=== PATIENT | female | born 1960 | race Caucasian/White ===

== ENCOUNTER 2017-01-15 14:25 | Observation (INO) | payer OTHER ==
[2017-01-15] MEDS ORDERED: METOCLOPRAMIDE HCL INJECTION 10 MG/2 ML VIAL IVPB ONE (16:39)
[2017-01-15] MEDS ORDERED: ACETAMINOPHEN 325 MG TABLET (FP) PO ONE (16:39)
[2017-01-15] MEDS ORDERED: SODIUM CHLORIDE 1,000 ML IV STA (16:39)
--- NOTE | 2017-01-15 16:45 | PDOC ---
History of Present Illness - General History Source: Patient, Old Records Exam Limitations: No Limitations - History of Present Illness Initial Comments: 01/15/17 16:47 The patient is a 56 year old female, with a significant past medical history of diabetes, who presents to the emergency department with a headache, neck stiffness and dizziness for the past 6 days. She describes her headache as onset when she woke up 6 days ago. She notes that her headache is localized on the right side of her head, ranging from mild to moderate, without radiation. She notes that touching the area exacerbates the pain. She also notes that she has been taking motrin for the pain with minimal relief of her pain. She states that she does have a family history of headaches. The patient denies chest pain and shortness of breath. Denies fever, chills, nausea, vomit, diarrhea and constipation. Denies dysuria, frequency, urgency and hematuria. Allergies: None Past surgical history: None reported Social history: No alcohol, tobacco or drug use reported PMD - Dr. Gautam Theodore <Tyson Mari - Last Filed: 01/15/17 16:46> - General History Source: Patient Exam Limitations: No Limitations <Mp Iverson - Last Filed: 01/15/17 19:12> - General Chief Complaint: Headache Stated Complaint: DIZZINESS, HEADACHE Time Seen by Provider: 01/15/17 16:26 Past History <Tyson Mari - Last Filed: 01/15/17 16:46> - Past Medical History Diabetes: Yes - Surgical History Appendectomy: Yes Cholecystectomy: Yes - Psycho/Social/Smoking Cessation Hx Anxiety: No Suicidal Ideation: No Smoking History: Never smoked Have you smoked in the past 12 months: No Number of Cigarettes Smoked Daily: 0 Information on smoking cessation initiated: No Hx Alcohol Use: No Drug/Substance Use Hx: No Substance Use Type: None <Mp Iverson - Last Filed: 01/15/17 19:12> - Past Medical History Allergies/Adverse Reactions: Allergies Allergy/AdvReac Type Severity Reaction Status Date / Time No Known Allergies Allergy Unverified 01/15/17 14:50 Home Medications: Ambulatory Orders Metformin HCl 500 mg PO BID 11/25/15 Empagliflozin [Jardiance] 10 mg PO DAILY 01/15/17 Review of Systems - Review of Systems Able to Perform ROS?: Yes Comments:: 01/15/17 16:47 GENERAL/CONSTITUTIONAL: No fever or chills. No weakness. HEAD, EYES, EARS, NOSE AND THROAT: No change in vision. No ear pain or discharge. No sore throat. NECK: (+) Neck stiffness CARDIOVASCULAR: No chest pain or shortness of breath RESPIRATORY: No cough, wheezing, or hemoptysis. GASTROINTESTINAL: No nausea, vomiting, diarrhea or constipation. GENITOURINARY: No dysuria, frequency, or change in urination. MUSCULOSKELETAL: No joint or muscle swelling or pain. No neck or back pain. SKIN: No rash NEUROLOGIC: (+) Headache, dizziness. No loss of consciousness, or change in strength/sensation. ENDOCRINE: No increased thirst. No abnormal weight change HEMATOLOGIC/LYMPHATIC: No anemia, easy bleeding, or history of blood clots. ALLERGIC/IMMUNOLOGIC: No hives or skin allergy. <Tyson Mari - Last Filed: 01/15/17 16:46> *Physical Exam - Vital Signs Last Vital Signs Temp Pulse Resp BP Pulse Ox 98.2 F 77 18 147/80 100 01/15/17 14:50 01/15/17 14:50 01/15/17 14:50 01/15/17 14:50 01/15/17 14:50 - Physical Exam Comments: 01/15/17 16:47 GENERAL: Awake, alert, and fully oriented, in no acute distress HEAD: No signs of trauma, normocephalic, atraumatic EYES: PERRLA, EOMI, sclera anicteric, conjunctiva clear ENT: Auricles normal inspection, hearing grossly normal, nares patent, oropharynx clear without exudates. Moist mucosa NECK: Normal ROM, supple, no lymphadenopathy, JVD, or masses LUNGS: No distress, speaks full sentences, clear to auscultation bilaterally HEART: Regular rate and rhythm, normal S1 and S2, no murmurs, rubs or gallops, peripheral pulses normal and equal bilaterally. ABDOMEN: Soft, nontender, normoactive bowel sounds. No guarding, no rebound. No masses EXTREMITIES: Normal inspection, Normal range of motion, no edema. No clubbing or cyanosis. NEUROLOGICAL: Cranial nerves II through XII intact. Normal speech, normal gait , no focal sensorimotor deficits. 5/5 strength in upper and lower extremities bilaterally. Sensation intact throughout. Skin sensitivity along the V1 nerve. No pronator drift. Finger to nose intact. SKIN: Warm, Dry, normal turgor, no rashes or lesions noted. <JaceyTysonedinson Daoe - Last Filed: 01/15/17 16:46> - Vital Signs Last Vital Signs Temp Pulse Resp BP Pulse Ox 98.2 F 77 18 147/80 100 01/15/17 14:50 01/15/17 14:50 01/15/17 14:50 01/15/17 14:50 01/15/17 14:50 <Mp Iverson - Last Filed: 01/15/17 19:12> ED Treatment Course - LABORATORY CBC & Chemistry Diagram: 01/15/17 17:00 01/15/17 17:00 - RADIOLOGY Radiology Studies Ordered: Category Date Time Status HEAD CT WITHOUT CONTRAST [CT] Stat CT Scan 01/15/17 16:39 Ordered <Mp Iverson - Last Filed: 01/15/17 19:12> Medical Decision Making - Medical Decision Making 01/15/17 16:43 A portion of this note was documented by scribe services under my direction. I have reviewed the details of the note, within reason, and agree with the documentation with the following case summary and management plan written by me. Patient treated in the ED. Nursing notes are reviewed and incorporated into the medical decision-making. Vital signs reviewed. Peripheral IV access obtained by the nurse, laboratory studies are drawn and sent, reviewed and interpreted by myself. Vital Signs Temp Pulse Resp BP Pulse Ox 98.2 F 77 18 147/80 100 01/15/17 14:50 01/15/17 14:50 01/15/17 14:50 01/15/17 14:50 01/15/17 14:50 56-year-old female with past medical history diabetes presents with headache. Patient reports one week ago, she woke up with his right-sided headache that was constant. Denies any exacerbating or improving factors. Denies photophobia or phonophobia. Denies fevers. Stated that she had some upper neck pain but has negative Kernig's and Brudzinski's. Denies prior history of migraines or headache history but does have a family history of headaches. The patient is particularly sensitive on palpation over the V1 distribution of the right head. Differential includes migraines, tension headache, trigeminal neuralgia. I have low suspicion for meningitis at this time. We'll obtain head CT and labs. We'll trial migraine medications and reassess in this patient with patient's doctor. 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 No acute findings. CBC, BMP 01/15/17 17:00 01/15/17 17:00 CMP Sodium 142 mmol/L (136-145) 01/15/17 17:00 Potassium 4.5 mmol/L (3.5-5.1) 01/15/17 17:00 Chloride 107 mmol/L (98-107) 01/15/17 17:00 Carbon Dioxide 27 mmol/L (21-32) 01/15/17 17:00 Anion Gap 8 (8-16) 01/15/17 17:00 BUN 18 mg/dL (7-18) 01/15/17 17:00 Creatinine 0.8 mg/dL (0.55-1.02) 01/15/17 17:00 Creat Clearance w eGFR > 60 (>60) 01/15/17 17:00 Random Glucose 106 mg/dL (74-106) 01/15/17 17:00 Calcium 8.8 mg/dL (8.5-10.1) 01/15/17 17:00 Total Bilirubin 0.3 mg/dL (0.2-1.0) 01/15/17 17:00 AST 14 U/L (15-37) L 01/15/17 17:00 ALT 24 U/L (12-78) 01/15/17 17:00 Alkaline Phosphatase 90 U/L (45-117) 01/15/17 17:00 C-Reactive Protein 1.0 MG/DL (0.00-0.3) H 01/15/17 17:00 Total Protein 7.0 g/dl (6.4-8.2) 01/15/17 17:00 Albumin 3.9 g/dl (3.4-5.0) 01/15/17 17:00 Labs reviewed. Pt continues to have persistent headache. Case discussed with DR. Theodore for persistent headache. Patient accepted to med/surg obs. Requests Dr. Pete for neuro consultation. <Mp Iverson - Last Filed: 01/15/17 19:12> *DC/Admit/Observation/Transfer - Attestations Scribe Attestion: 01/15/17 16:47 Documentation prepared by Tyson Mari, acting as medical voucher clerk for Mp Iverson MD <Tyson Mari - Last Filed: 01/15/17 16:46> - Discharge Dispostion Admit: Yes <Mp Iverson - Last Filed: 01/15/17 19:12> Diagnosis at time of Disposition: Headache Qualifiers: Headache type: unspecified Headache chronicity pattern: acute headache Intractability: intractable Qualified Code(s): R51 - Headache - Discharge Dispostion Condition at time of disposition: Stable - Referrals Referrals: Gautam Theodore MD [Primary Care Provider] -
[2017-01-15] MEDS ORDERED: ACETAMINOPHEN 325 MG TABLET (FP) ONE (16:53)
[2017-01-15] MEDS ORDERED: METOCLOPRAMIDE HCL INJECTION 10 MG/2 ML VIAL ONE (16:54)
[2017-01-15 17:11] LABS: BASOPHIL 0.8 % (0-2.0); EOSINOPHIL 2.7 % (0-4.5); MCH 28.5 pg (25.7-33.7); MEAN CELL VOLUME 86.5 fl (80-96); MEAN PLT VOLUME 8.7 fl (7.5-11.1); NEUTROPHILS 55.2 % (42.8-82.8); PLATELET COUNT 216 K/MM3 (134-434); RDW 14.2 % (11.6-15.6); WHITE BLOOD COUNT 6.3 K/mm3 (4.0-10.0)
[2017-01-15 17:45] LABS: ALBUMIN 3.9 g/dl (3.4-5.0); ANION GAP 8 (8-16); BILIRUBIN,TOTAL 0.3 mg/dL (0.2-1.0); CALCIUM 8.8 mg/dL (8.5-10.1); CO2 27 mmol/L (21-32); COCKROFT - GAULT 115.5575; CREATININE 0.8 mg/dL (0.55-1.02); GLUCOSE,RANDOM 106 mg/dL (74-106); SGOT/AST 14 U/L (15-37); SGPT/ALT 24 U/L (12-78)
[2017-01-15 17:46] LABS: ALK PHOS 90 U/L (45-117)
[2017-01-15 18:40] LABS: ERYTHROCYTE SEDIMENTATION RATE 35 mm/hr (0-30)
[2017-01-15] MEDS ORDERED: KETOROLAC TROMETHAMINE 30 MG/1 ML VIAL IVPUSH ONE (19:13)
[2017-01-15] MEDS ORDERED: MAGNESIUM SULF 50% (8.12 MEQ/2 ML-1 GM VIAL) IVPB ONE (19:13)
--- NOTE | 2017-01-15 19:22 | HP ---
Admitting History and Physical - Primary Care Physician PCP: Gautam Theodore - Admission Chief Complaint: HEADACHE WITH NUMBNESS AND TINGLING RULE OUT CVA History of Present Illness: 56 T/Y FEMALE WITH PAST MEDICAL HISTORY OF HTN/DMII BORDERLINE/LIPIDEMIA/ OBESITY PRESENTS WITH THE WORST HEADACHE OF HER LIFE FOR PAST 24 HRS BUT SLOWLY STARTED 1 WEEK AGO AND HAS BEEN GETTING WORSE DAILY WITHOUT AND RELIEF WITH OTC MEDICATIONS. PATIENT REPORTS NUMBNESS AND TINGLING AND WEAKNESS OF HER FACE. History Source: Patient Limitations to Obtaining History: No Limitations - Past Medical History Cardiovascular: Yes: HTN - Smoking History Smoking history: Never smoked Have you smoked in the past 12 months: No Aproximately how many cigarettes per day: 0 - Alcohol/Substance Use Hx Alcohol Use: No Home Medications - Allergies Allergies/Adverse Reactions: Allergies Allergy/AdvReac Type Severity Reaction Status Date / Time No Known Allergies Allergy Unverified 01/15/17 14:50 - Home Medications Home Medications: Ambulatory Orders Metformin HCl 500 mg PO BID 11/25/15 Empagliflozin [Jardiance] 10 mg PO DAILY 01/15/17 Review of Systems - Review of Systems Constitutional: reports: Weakness Eyes: reports: No Symptoms HENT: reports: Other Neck: reports: No Symptoms Cardiovascular: reports: No Symptoms Respiratory: reports: No Symptoms Gastrointestinal: reports: No Symptoms Genitourinary: reports: No Symptoms Musculoskeletal: reports: No Symptoms Integumentary: reports: No Symptoms Neurological: reports: Dizziness, Headache, Numbness, Weakness Endocrine: reports: No Symptoms Hematology/Lymphatic: reports: No Symptoms Psychiatric: reports: No Symptoms Physical Examination Vital Signs: Vital Signs Temperature 98.2 F 01/15/17 14:50 Pulse Rate 77 01/15/17 14:50 Respiratory Rate 18 01/15/17 14:50 Blood Pressure 147/80 01/15/17 14:50 O2 Sat by Pulse Oximetry (%) 100 01/15/17 14:50 Constitutional: Yes: Moderate Distress Eyes: Yes: WNL HENT: Yes: WNL Neck: Yes: WNL Cardiovascular: Yes: WNL Respiratory: Yes: WNL Gastrointestinal: Yes: WNL Musculoskeletal: Yes: WNL Extremities: Yes: WNL Edema: No Peripheral Pulses WNL: Yes Integumentary: Yes: WNL Wound/Incision: Yes: Clean/Dry Neurological: Yes: WNL ...Motor Strength: WNL Psychiatric: Yes: WNL Labs: CBC, BMP 01/15/17 17:00 01/15/17 17:00 Imaging - Results Cat Scan: Pending MRI: Pending Problem List - Problems (1) Headache Code(s): R51 - HEADACHE Qualifiers: Headache type: unspecified Headache chronicity pattern: acute headache Intractability: intractable Qualified Code(s): R51 - Headache (2) Stroke risk Code(s): Z91.89 - OTH PERSONAL RISK FACTORS, NOT ELSEWHERE CLASSIFIED (3) Hypertension Code(s): I10 - ESSENTIAL (PRIMARY) HYPERTENSION Qualifiers: Hypertension type: essential hypertension Qualified Code(s): I10 - Essential (primary) hypertension (4) Lipidemia Code(s): E78.5 - HYPERLIPIDEMIA, UNSPECIFIED Qualifiers: Hyperlipidemia type: mixed hyperlipidemia Qualified Code(s): E78.2 - Mixed hyperlipidemia (5) Obesity (BMI 30-39.9) Code(s): E66.9 - OBESITY, UNSPECIFIED Assessment/Plan PATIENT WITH STRONG FMHX OF STROKE/CAD WILL NEED OBSERVATION STATUS CTA AND MRI OF BRAIN BECAUSE OF FAMILY HISTORY OF CVA AND AVM OF BRAIN LIPID PANEL HTN CONTROL KEEP SBP ABOVE 130 NEUROLOGY AND CARDIOLOGY EVAL
[2017-01-15] MEDS ORDERED: ACETAMINOPHEN 325 MG TABLET (FP) PO PRN (19:23)
[2017-01-15] MEDS: KETOROLAC TROMETHAMINE 30 MG/1 ML VIAL IVPUSH SCH (19:49)
[2017-01-15] MEDS: ATORVASTATIN CA 10 MG TABLET (FP) PO SCH (22:40)
[2017-01-15 23:24] VITALS: BMI 40.1
[2017-01-16] MEDS: KETOROLAC TROMETHAMINE 30 MG/1 ML VIAL IVPUSH SCH ×3 (01:49→18:43)
[2017-01-16 07:07] LABS: MCH 29.2 pg (25.7-33.7); MCHC 33.5 g/dl (32.0-36.0); MEAN CELL VOLUME 87.2 fl (80-96); MEAN PLT VOLUME 8.6 fl (7.5-11.1); PLATELET COUNT 181 K/MM3 (134-434); RDW 13.8 % (11.6-15.6); WHITE BLOOD COUNT 6.6 K/mm3 (4.0-10.0)
[2017-01-16 08:21] LABS: ALBUMIN 3.2 g/dl (3.4-5.0); ALK PHOS 79 U/L (45-117); ANION GAP 8 (8-16); BILIRUBIN,TOTAL 0.2 mg/dL (0.2-1.0); CALCIUM 8.1 mg/dL (8.5-10.1); CHOLESTEROL 196 mg/dL (50-200); CO2 24 mmol/L (21-32); CREATININE 0.8 mg/dL (0.55-1.02); GLUCOSE,RANDOM 133 mg/dL (74-106); LDL CHOLESTEROL (ONLY SJRH) 123 mg/dL (5-100); SGOT/AST 20 U/L (15-37); SGPT/ALT 23 U/L (12-78); TOT PROT 5.9 g/dl (6.4-8.2)
[2017-01-16] MEDS ORDERED: ACETAMINOPHEN/CAFFEINE/BUTALBITAL 1 TAB PO PRN (12:12)
--- NOTE | 2017-01-16 12:12 | CONSULT ---
Consult - text type - Consultation Consultation Note: Neurology The patient is a 56 year old female, with a significant past medical history of diabetes, who presented to the emergency department with a headache, neck discomfort for the past 6 days. She notes that her headache is localized on the right side of her head and starting from her neck, ranging from mild to moderate , without radiation. She notes that touching the area exacerbates the pain. She also notes that she has been taking motrin for the pain with minimal relief of her pain. She states that she does have a family history of headaches. There is no neck stiffness or nuchal rigidity. CT head completed and without acute changes. She is feeling better today with pain medication. MRI brain and CTA head and neck ordered by PCP. Past History - Past Medical History Diabetes: Yes - Surgical History Appendectomy: Yes Cholecystectomy: Yes - Psycho/Social/Smoking Cessation Hx Anxiety: No Suicidal Ideation: No Smoking History: Never smoked Have you smoked in the past 12 months: No Number of Cigarettes Smoked Daily: 0 Information on smoking cessation initiated: No Hx Alcohol Use: No Drug/Substance Use Hx: No Substance Use Type: None - Past Medical History Allergies/Adverse Reactions: Allergies Allergy/AdvReac Type Severity Reaction Status Date / Time No Known Allergies Allergy Unverified 01/15/17 14:50 Home Medications: Ambulatory Orders Metformin HCl 500 mg PO BID 11/25/15 Empagliflozin [Jardiance] 10 mg PO DAILY 01/15/17 Review of Systems GENERAL/CONSTITUTIONAL: No fever or chills. No weakness. HEAD, EYES, EARS, NOSE AND THROAT: No change in vision. No ear pain or discharge. No sore throat. NECK: (+) Neck stiffness CARDIOVASCULAR: No chest pain or shortness of breath RESPIRATORY: No cough, wheezing, or hemoptysis. GASTROINTESTINAL: No nausea, vomiting, diarrhea or constipation. GENITOURINARY: No dysuria, frequency, or change in urination. MUSCULOSKELETAL: No joint or muscle swelling or pain. No neck or back pain. SKIN: No rash NEUROLOGIC: (+) Headache, dizziness. No loss of consciousness, or change in strength/sensation. ENDOCRINE: No increased thirst. No abnormal weight change HEMATOLOGIC/LYMPHATIC: No anemia, easy bleeding, or history of blood clots. ALLERGIC/IMMUNOLOGIC: No hives or skin allergy. *Physical Exam Vital Signs Temperature 97.6 F 01/16/17 06:00 Pulse Rate 69 01/16/17 06:00 Respiratory Rate 18 01/16/17 06:00 Blood Pressure 128/69 01/16/17 06:00 O2 Sat by Pulse Oximetry (%) 99 01/15/17 20:30 GENERAL: Awake, alert, and fully oriented, in no acute distress HEAD: No signs of trauma, normocephalic, atraumatic EYES: PERRLA, EOMI, sclera anicteric, conjunctiva clear ENT: Auricles normal inspection, hearing grossly normal, nares patent, oropharynx clear without exudates. Moist mucosa NECK: Normal ROM, supple, no lymphadenopathy, JVD, or masses LUNGS: No distress, speaks full sentences, clear to auscultation bilaterally HEART: Regular rate and rhythm, normal S1 and S2, no murmurs, rubs or gallops, peripheral pulses normal and equal bilaterally. ABDOMEN: Soft, nontender, normoactive bowel sounds. No guarding, no rebound. No masses EXTREMITIES: Normal inspection, Normal range of motion, no edema. No clubbing or cyanosis. NEUROLOGICAL: Cranial nerves II through XII intact. Normal speech, normal gait , no focal sensorimotor deficits. 5/5 strength in upper and lower extremities bilaterally. Sensation intact throughout. Skin sensitivity along the V1 nerve. No pronator drift. Finger to nose intact. SKIN: Warm, Dry, normal turgor, no rashes or lesions noted. CBCD WBC 6.6 K/mm3 (4.0-10.0) 01/16/17 06:30 RBC 3.88 M/mm3 (3.60-5.2) 01/16/17 06:30 Hgb 11.3 GM/dL (10.7-15.3) 01/16/17 06:30 Hct 33.8 % (32.4-45.2) 01/16/17 06:30 MCV 87.2 fl (80-96) 01/16/17 06:30 MCHC 33.5 g/dl (32.0-36.0) 01/16/17 06:30 RDW 13.8 % (11.6-15.6) 01/16/17 06:30 Plt Count 181 K/MM3 (134-434) 01/16/17 06:30 MPV 8.6 fl (7.5-11.1) 01/16/17 06:30 CMP Sodium 142 mmol/L (136-145) 01/16/17 06:30 Potassium 4.4 mmol/L (3.5-5.1) 01/16/17 06:30 Chloride 110 mmol/L (98-107) H 01/16/17 06:30 Carbon Dioxide 24 mmol/L (21-32) 01/16/17 06:30 Anion Gap 8 (8-16) 01/16/17 06:30 BUN 20 mg/dL (7-18) H 01/16/17 06:30 Creatinine 0.8 mg/dL (0.55-1.02) 01/16/17 06:30 Creat Clearance w eGFR > 60 (>60) 01/16/17 06:30 Calcium 8.1 mg/dL (8.5-10.1) L 01/16/17 06:30 Total Bilirubin 0.2 mg/dL (0.2-1.0) D 01/16/17 06:30 AST 20 U/L (15-37) D 01/16/17 06:30 ALT 23 U/L (12-78) 01/16/17 06:30 Alkaline Phosphatase 79 U/L (45-117) 01/16/17 06:30 Total Protein 5.9 g/dl (6.4-8.2) L 01/16/17 06:30 Albumin 3.2 g/dl (3.4-5.0) L 01/16/17 06:30 Medical Decision Making 56 year old female, with a significant past medical history of diabetes, who presented to the emergency department with a headache, neck discomfort for the past 6 days. She notes that her headache is localized on the right side of her head and starting from her neck, ranging from mild to moderate, without radiation. She notes that touching the area exacerbates the pain. She also notes that she has been taking motrin for the pain with minimal relief of her pain. She states that she does have a family history of headaches. There is no neck stiffness or nuchal rigidity. CT head completed and without acute changes. She is feeling better today with pain medication. MRI brain and CTA head and neck ordered by PCP. Most likely, complicated migraine Will order Fioricet for headache as needed Cervicalgia can be treated with cyclobenzaprine but will hold off on adding this as symptoms improved Cognitive rest recommended
--- NOTE | 2017-01-16 15:38 | CON.CARD ---
Consult Consult Specialty:: cardiology Reason for Consultation:: CAD risks; now with headaches, dizziness - History of Present Illness Chief Complaint: Pt continues to have intermittent headaches. Denies ches pain. History of Present Illness: The patient is a 56 year old female, with a significant past medical history of diabetes, hyperlipidemia, obesity, HTN, arthritis (knees), anxiety, sedentary, who presents to the emergency department with a headache, neck stiffness and dizziness for the past 6 days. She describes her headache's onset when she woke up 6 days ago. She notes that her headache is localized on the right side of her head, ranging from mild to moderate, without radiation. She notes that touching the area exacerbates the pain. She also notes that she has been taking motrin for the pain with minimal relief of her pain. She states that she does have a family history of headaches. The patient denies chest pain and shortness of breath. Denies fever, chills, nausea, vomit, diarrhea and constipation. Denies dysuria, frequency, urgency and hematuria. In 12/2012, pt was at admitted to [facility] with diffuse chest pressure for hours; a coronary angiogram at [facility], where a coronary angiogram showed patent coronary arteries with mild luminal irregularities. Allergies: None Social history: rare alcoholic drink; no tobacco or drug use reported PMD - Dr. Gautam Theodore - History Source History Provided By: Patient, Medical Record Limitations to Obtaining History: No Limitations - Past Medical History [employer]: No: Dementia Cardio/Vascular: Yes: HTN, Hyperlipdemia, Other (DM; obesity; sedentary ) Renal/: No: Renal Inusuff Reproductive: Yes: Postmenopausal Heme/Onc: No: Anemia Psych: Yes: Anxiety Musculoskeletal: Yes: Other (chronic knee pain) - Past Surgical History Additional Surgical History: coronary angiogram 2012 - Alcohol/Substance Use Hx Alcohol Use: Yes - Smoking History Smoking history: Never smoked Have you smoked in the past 12 months: No Aproximately how many cigarettes per day: 0 Home Medications - Allergies Allergies/Adverse Reactions: Allergies Allergy/AdvReac Type Severity Reaction Status Date / Time Iodinated Contrast Media - Allergy Verified 01/16/17 13:30 Oral and IV CONTRAST Allergy Severe Difficulty Uncoded 01/15/17 21:19 Breathing - Home Medications Home Medications: Ambulatory Orders Metformin HCl 500 mg PO BID 11/25/15 Empagliflozin [Jardiance] 10 mg PO DAILY 01/15/17 Family Disease History - Family Disease History Family History: Denies Family Disease History: Heart Disease: Mother ([place] in her late 60s), Other: Father ( of CVA age 73) Review of Systems - Review of Systems Constitutional: reports: Weakness Eyes: reports: No Symptoms HENT: reports: Other (headaches) Neck: reports: No Symptoms Cardiovascular: reports: No Symptoms Respiratory: reports: No Symptoms Gastrointestinal: reports: No Symptoms Genitourinary: reports: No Symptoms Breasts: reports: No Symptoms Reported Musculoskeletal: reports: Joint Pain (L>R knee) Integumentary: reports: No Symptoms Neurological: reports: Headache Endocrine: reports: No Symptoms Hematology/Lymphatic: reports: No Symptoms Psychiatric: reports: Anxiety - Risk Factors Known Risk Factors: Yes: Age, Diabetes Mellitus, Family History, Hypercholesterolemia, Hypertension, Physical Inactivity, Other (anxiety) Vital Signs: Vital Signs Temperature 97.6 F 01/16/17 06:00 Pulse Rate 72 01/16/17 10:00 Respiratory Rate 18 01/16/17 10:00 Blood Pressure 130/66 01/16/17 10:00 O2 Sat by Pulse Oximetry (%) 95 01/16/17 11:00 Constitutional: Yes: Anxious Eyes: Yes: WNL HENT: Yes: WNL Neck: Yes: WNL Respiratory: Yes: WNL Gastrointestinal: Yes: Soft, Abdomen, Obese Renal/: Yes: WNL Cardiovascular: Yes: Regular Rate and Rhythm JVD: No Carotid Bruit: No PMI: Non-Displaced Heart Sounds: Yes: S1, S2 Musculoskeletal: Yes: WNL, Joint Stiffness (left knee) Extremities: Yes: WNL Edema: No Peripheral Pulses WNL: Yes Integumentary: Yes: WNL Neurological: Yes: Alert, Oriented, Other (headache) Psychiatric: Yes: Other (anxiety) - Other Data Labs, Other Data: CBC, BMP 01/16/17 06:30 01/16/17 06:30 Echo: Report Reviewed (normal LVEF; mild NJ and TR) Ejection Fraction %: LVEF > or = 40 % Imaging - Results Chest X-ray: Image Reviewed (no acute pathology) Cat Scan: Image Reviewed (head: no pathology) Problem List - Problems (1) Headache Assessment/Plan: f/u with neurology. Head CT negative; for MRI. Code(s): R51 - HEADACHE Qualifiers: Headache type: unspecified Headache chronicity pattern: acute headache Intractability: intractable Qualified Code(s): R51 - Headache (2) Hypertension Assessment/Plan: Start lisinopril (HTN; DM). F/u BUn/Cr, electrolytes; serial BP checks. Encouraged dietary modification, weight loss, increase in exercise. Code(s): I10 - ESSENTIAL (PRIMARY) HYPERTENSION Qualifiers: Hypertension type: essential hypertension Qualified Code(s): I10 - Essential (primary) hypertension (3) Lipidemia Assessment/Plan: on statin; keep LDL cholesterol < 70 mg/dL. Code(s): E78.5 - HYPERLIPIDEMIA, UNSPECIFIED Qualifiers: Hyperlipidemia type: mixed hyperlipidemia Qualified Code(s): E78.2 - Mixed hyperlipidemia (4) Diabetes Code(s): E11.9 - TYPE 2 DIABETES MELLITUS WITHOUT COMPLICATIONS (5) Anxiety Code(s): F41.9 - ANXIETY DISORDER, UNSPECIFIED (6) Sedentary lifestyle Assessment/Plan: consider physical rehabilitation (chronic knee arthritis limits exercise). Code(s): Z91.89 - OTH PERSONAL RISK FACTORS, NOT ELSEWHERE CLASSIFIED (7) Arthritis Assessment/Plan: knee pain limits exercise. Avoid NSAIDs. Code(s): M19.90 - UNSPECIFIED OSTEOARTHRITIS, UNSPECIFIED SITE
[2017-01-16] MEDS: LISINOPRIL 5 MG TABLET (FP) PO SCH (17:44)
--- NOTE | 2017-01-16 22:11 | PN ---
Progress Note, Physician Chief Complaint: AWAKE ALERT HEADACHES IMPROVING - Current Medication List Current Medications: Active Medications Acetaminophen (Tylenol -) 650 mg PO Q6H PRN PRN Reason: FEVER OR PAIN Acetaminophen/Butalbital/Caffeine (Fioricet -) 1 tablet PO Q6H PRN PRN Reason: HEADACHE Atorvastatin Calcium (Lipitor -) 10 mg PO HS COUNT INCLUDES [facility] Last Admin: 01/15/17 22:40 Dose: Not Given Ketorolac Tromethamine (Toradol Injection -) 30 mg IVPUSH Q8H-IV RICO Stop: 01/20/17 19:29 Last Admin: 01/16/17 18:43 Dose: 30 mg Lisinopril (Prinivil) 2.5 mg PO DAILY COUNT INCLUDES THE [facility] Last Admin: 01/16/17 17:44 Dose: 2.5 mg - Objective Vital Signs: Vital Signs Temperature 98.5 F 01/16/17 18:00 Pulse Rate 66 01/16/17 18:00 Respiratory Rate 20 01/16/17 18:00 Blood Pressure 141/77 01/16/17 18:00 O2 Sat by Pulse Oximetry (%) 95 01/16/17 11:00 Constitutional: Yes: Mild Distress Eyes: Yes: WNL HENT: Yes: WNL Neck: Yes: WNL Cardiovascular: Yes: WNL Respiratory: Yes: WNL Gastrointestinal: Yes: WNL Genitourinary: Yes: WNL Musculoskeletal: Yes: WNL Extremities: Yes: WNL Edema: No Peripheral Pulses WNL: Yes Integumentary: Yes: WNL Wound/Incision: Yes: Clean/Dry Neurological: Yes: WNL ...Motor Strength: WNL Psychiatric: Yes: WNL Labs: CBC, BMP 01/16/17 06:30 01/16/17 06:30 Problem List - Problems (1) Headache Code(s): R51 - HEADACHE Qualifiers: Headache type: unspecified Headache chronicity pattern: acute headache Intractability: intractable Qualified Code(s): R51 - Headache (2) Stroke risk Code(s): Z91.89 - OTH PERSONAL RISK FACTORS, NOT ELSEWHERE CLASSIFIED (3) Hypertension Code(s): I10 - ESSENTIAL (PRIMARY) HYPERTENSION Qualifiers: Hypertension type: essential hypertension Qualified Code(s): I10 - Essential (primary) hypertension (4) Lipidemia Code(s): E78.5 - HYPERLIPIDEMIA, UNSPECIFIED Qualifiers: Hyperlipidemia type: mixed hyperlipidemia Qualified Code(s): E78.2 - Mixed hyperlipidemia (5) Obesity (BMI 30-39.9) Code(s): E66.9 - OBESITY, UNSPECIFIED Assessment/Plan MRI RESULTS DISCUSSED WITH RADIOLOGY NO CVA MIGRAINE MOST LIKELY NEUROLOGY WORKUP IN PROGRESS CARDIOLOGY FOR F/U ON TELEMETRY
[2017-01-16] MEDS: ATORVASTATIN CA 10 MG TABLET (FP) PO SCH (22:37)
[2017-01-17 02:50] VITALS: TEMP 98.4
[2017-01-17] MEDS: KETOROLAC TROMETHAMINE 30 MG/1 ML VIAL IVPUSH SCH ×2 (03:35→08:59)
[2017-01-17] MEDS: LISINOPRIL 5 MG TABLET (FP) PO SCH (08:59)
--- NOTE | 2017-01-17 09:55 | PN ---
Progress Note, Physician History of Present Illness: The patient is a 56 year old female, with a significant past medical history of diabetes, hyperlipidemia, obesity, HTN, arthritis (knees), anxiety, sedentary, who presents to the emergency department with a headache, neck stiffness and dizziness for the past 6 days. She describes her headache's onset when she woke up 6 days ago. She notes that her headache is localized on the right side of her head, ranging from mild to moderate, without radiation. She notes that touching the area exacerbates the pain. She also notes that she has been taking motrin for the pain with minimal relief of her pain. She states that she does have a family history of headaches. The patient denies chest pain and shortness of breath. Denies fever, chills, nausea, vomit, diarrhea and constipation. Denies dysuria, frequency, urgency and hematuria. In 12/2012, pt was at admitted to [facility] with diffuse chest pressure for hours; a coronary angiogram at [facility], where a coronary angiogram showed patent coronary arteries with mild luminal irregularities. Allergies: None Social history: rare alcoholic drink; no tobacco or drug use reported PMD - Dr. Gautam Theodore - Current Medication List Current Medications: Active Medications Acetaminophen (Tylenol -) 650 mg PO Q6H PRN PRN Reason: FEVER OR PAIN Acetaminophen/Butalbital/Caffeine (Fioricet -) 1 tablet PO Q6H PRN PRN Reason: HEADACHE Atorvastatin Calcium (Lipitor -) 10 mg PO HS [facility] Last Admin: 01/16/17 22:37 Dose: Not Given Ketorolac Tromethamine (Toradol Injection -) 30 mg IVPUSH Q8H-IV RICO Stop: 01/20/17 19:29 Last Admin: 01/17/17 08:59 Dose: Not Given Lisinopril (Prinivil) 2.5 mg PO DAILY [facility] Last Admin: 01/17/17 08:59 Dose: 2.5 mg - Objective Vital Signs: Vital Signs Temperature 98.4 F 01/17/17 06:00 Pulse Rate 61 01/17/17 06:00 Respiratory Rate 20 01/17/17 06:00 Blood Pressure 119/66 01/17/17 06:00 O2 Sat by Pulse Oximetry (%) 95 01/17/17 06:00 Eyes: Yes: WNL, Conjunctiva Clear, EOM Intact HENT: Yes: WNL, Atraumatic, Normocephalic Neck: Yes: WNL, Supple, Trachea Midline Cardiovascular: Yes: WNL, Regular Rate and Rhythm Respiratory: Yes: WNL, Regular, CTA Bilaterally Gastrointestinal: Yes: WNL, Normal Bowel Sounds Genitourinary: Yes: WNL Musculoskeletal: Yes: WNL Extremities: Yes: WNL Edema: No Integumentary: Yes: WNL Neurological: Yes: WNL, Alert, Oriented ...Motor Strength: WNL Psychiatric: Yes: WNL Labs: CBC, BMP 01/16/17 06:30 01/16/17 06:30 Assessment/Plan 1) Headache Assessment/Plan: f/u with neurology. Head CT negative; for MRI. Code(s): R51 - HEADACHE Qualifiers: Headache type: unspecified Headache chronicity pattern: acute headache Intractability: intractable Qualified Code(s): R51 - Headache (2) Hypertension Assessment/Plan: Start lisinopril (HTN; DM). F/u BUn/Cr, electrolytes; serial BP checks. Encouraged dietary modification, weight loss, increase in exercise. Code(s): I10 - ESSENTIAL (PRIMARY) HYPERTENSION Qualifiers: Hypertension type: essential hypertension Qualified Code(s): I10 - Essential (primary) hypertension (3) Lipidemia Assessment/Plan: on statin; keep LDL cholesterol < 70 mg/dL. Code(s): E78.5 - HYPERLIPIDEMIA, UNSPECIFIED Qualifiers: Hyperlipidemia type: mixed hyperlipidemia Qualified Code(s): E78.2 - Mixed hyperlipidemia (4) Diabetes Code(s): E11.9 - TYPE 2 DIABETES MELLITUS WITHOUT COMPLICATIONS (5) Anxiety Code(s): F41.9 - ANXIETY DISORDER, UNSPECIFIED (6) Sedentary lifestyle Assessment/Plan: consider physical rehabilitation (chronic knee arthritis limits exercise). Code(s): Z91.89 - OTH PERSONAL RISK FACTORS, NOT ELSEWHERE CLASSIFIED (7) Arthritis Assessment/Plan: knee pain limits exercise. Avoid NSAIDs. Code(s): M19.90 - UNSPECIFIED OSTEOARTHRITIS, UNSPECIFIED SITE
--- NOTE | 2017-01-17 10:36 | DS ---
Physical Examination Vital Signs: Vital Signs Temperature 98.4 F 01/17/17 06:00 Pulse Rate 61 01/17/17 06:00 Respiratory Rate 20 01/17/17 06:00 Blood Pressure 119/66 01/17/17 06:00 O2 Sat by Pulse Oximetry (%) 95 01/17/17 06:00 Constitutional: Yes: No Distress Eyes: Yes: WNL HENT: Yes: WNL Neck: Yes: WNL Cardiovascular: Yes: WNL Respiratory: Yes: WNL Gastrointestinal: Yes: WNL Renal/: Yes: WNL Musculoskeletal: Yes: WNL Extremities: Yes: WNL Edema: No Peripheral Pulses WNL: Yes Integumentary: Yes: WNL Wound/Incision: Yes: Clean/Dry Neurological: Yes: WNL ...Motor Strength: WNL Psychiatric: Yes: WNL Labs: CBC, BMP 01/16/17 06:30 01/16/17 06:30 Discharge Summary Reason For Visit: HEADACHE Current Active Problems Anxiety (Acute) Arthritis (Acute) Diabetes (Acute) Headache (Acute) Hypertension (Acute) Lipidemia (Acute) Obesity (BMI 30-39.9) (Acute) Sedentary lifestyle (Acute) Stroke risk (Acute) Procedures: Principal: mri brain Other Procedures: ct head/echo Hospital Course: admitted for rule out cva, mri brain no acute cva but + migraine changes, obesity discussed weight loss and exercise - Instructions Diet, Activity, Other Instructions: low fat/ada/low salt diet and exercise, stress release methods see dr michelle for stress test Referrals: Gautam Theodore MD [Primary Care Provider] - Disposition: HOME - Home Medications Comprehensive Discharge Medication List: Ambulatory Orders Metformin HCl 500 mg PO BID 11/25/15 Acetaminophen [Tylenol .Regular Strength -] 650 mg PO Q6H PRN #0 tablet Atorvastatin Ca [Lipitor] 10 mg PO HS #30 tablet 01/17/17 Lisinopril [Prinivil] 2.5 mg PO DAILY #30 tablet 01/17/17
[2017-01-17 10:42] VITALS: BP 125/91; PULSE 66
--- NOTE | 2017-01-17 11:11 | PN ---
Progress Note (short form) - Note Progress Note: Neurology The patient is a 56 year old female, with a significant past medical history of diabetes, who presented to the emergency department with a headache, neck discomfort for the past 6 days. She notes that her headache is localized on the right side of her head and starting from her neck, ranging from mild to moderate , without radiation. She notes that touching the area exacerbates the pain. She also notes that she has been taking motrin for the pain with minimal relief of her pain. She states that she does have a family history of headaches. There is no neck stiffness or nuchal rigidity. CT head completed and without acute changes. She is feeling better today with pain medication. MRI brain completed and normal. Patient well appearing today. [place] medication yesterday was helpful for her. Active Medications Acetaminophen (Tylenol -) 650 mg PO Q6H PRN PRN Reason: FEVER OR PAIN Acetaminophen/Butalbital/Caffeine (Fioricet -) 1 tablet PO Q6H PRN PRN Reason: HEADACHE Atorvastatin Calcium (Lipitor -) 10 mg PO HS [facility] Last Admin: 01/16/17 22:37 Dose: Not Given Ketorolac Tromethamine (Toradol Injection -) 30 mg IVPUSH Q8H-IV RICO Stop: 01/20/17 19:29 Last Admin: 01/17/17 08:59 Dose: Not Given Lisinopril (Prinivil) 2.5 mg PO DAILY [facility] Last Admin: 01/17/17 08:59 Dose: 2.5 mg *Physical Exam Vital Signs Temperature 98.4 F 01/17/17 06:00 Pulse Rate 66 01/17/17 10:00 Respiratory Rate 20 01/17/17 10:42 Blood Pressure 125/91 01/17/17 10:00 O2 Sat by Pulse Oximetry (%) 97 01/17/17 10:42 GENERAL: Awake, alert, and fully oriented, in no acute distress HEAD: No signs of trauma, normocephalic, atraumatic EYES: PERRLA, EOMI, sclera anicteric, conjunctiva clear ENT: Auricles normal inspection, hearing grossly normal, nares patent, oropharynx clear without exudates. Moist mucosa NECK: Normal ROM, supple, no lymphadenopathy, JVD, or masses LUNGS: No distress, speaks full sentences, clear to auscultation bilaterally HEART: Regular rate and rhythm, normal S1 and S2, no murmurs, rubs or gallops, peripheral pulses normal and equal bilaterally. ABDOMEN: Soft, nontender, normoactive bowel sounds. No guarding, no rebound. No masses EXTREMITIES: Normal inspection, Normal range of motion, no edema. No clubbing or cyanosis. NEUROLOGICAL: Cranial nerves II through XII intact. Normal speech, normal gait , no focal sensorimotor deficits. 5/5 strength in upper and lower extremities bilaterally. Sensation intact throughout. Skin sensitivity along the V1 nerve. No pronator drift. Finger to nose intact. SKIN: Warm, Dry, normal turgor, no rashes or lesions noted. CBCD WBC 6.6 K/mm3 (4.0-10.0) 01/16/17 06:30 RBC 3.88 M/mm3 (3.60-5.2) 01/16/17 06:30 Hgb 11.3 GM/dL (10.7-15.3) 01/16/17 06:30 Hct 33.8 % (32.4-45.2) 01/16/17 06:30 MCV 87.2 fl (80-96) 01/16/17 06:30 MCHC 33.5 g/dl (32.0-36.0) 01/16/17 06:30 RDW 13.8 % (11.6-15.6) 01/16/17 06:30 Plt Count 181 K/MM3 (134-434) 01/16/17 06:30 MPV 8.6 fl (7.5-11.1) 01/16/17 06:30 CMP Sodium 142 mmol/L (136-145) 01/16/17 06:30 Potassium 4.4 mmol/L (3.5-5.1) 01/16/17 06:30 Chloride 110 mmol/L (98-107) H 01/16/17 06:30 Carbon Dioxide 24 mmol/L (21-32) 01/16/17 06:30 Anion Gap 8 (8-16) 01/16/17 06:30 BUN 20 mg/dL (7-18) H 01/16/17 06:30 Creatinine 0.8 mg/dL (0.55-1.02) 01/16/17 06:30 Creat Clearance w eGFR > 60 (>60) 01/16/17 06:30 Calcium 8.1 mg/dL (8.5-10.1) L 01/16/17 06:30 Total Bilirubin 0.2 mg/dL (0.2-1.0) D 01/16/17 06:30 AST 20 U/L (15-37) D 01/16/17 06:30 ALT 23 U/L (12-78) 01/16/17 06:30 Alkaline Phosphatase 79 U/L (45-117) 01/16/17 06:30 Total Protein 5.9 g/dl (6.4-8.2) L 01/16/17 06:30 Albumin 3.2 g/dl (3.4-5.0) L 01/16/17 06:30 Medical Decision Making 56 year old female, with a significant past medical history of diabetes, who presented to the emergency department with a headache, neck discomfort for the past 6 days. She notes that her headache is localized on the right side of her head and starting from her neck, ranging from mild to moderate, without radiation. She notes that touching the area exacerbates the pain. She also notes that she has been taking motrin for the pain with minimal relief of her pain. She states that she does have a family history of headaches. There is no neck stiffness or nuchal rigidity. CT head completed and without acute changes. She is feeling better today with pain medication. MRI brain normal Most likely, complicated migraine Fioricet for headache as needed Cervicalgia can be treated with cyclobenzaprine but will hold off on adding this as symptoms improved Cognitive rest recommended
--- NOTE | 2017-01-17 12:53 | EKG ---
Test Reason : Blood Pressure : / mmHG Vent. Rate : 059 BPM Atrial Rate : 059 BPM P-R Int : 166 ms QRS Dur : 080 ms QT Int : 414 ms P-R-T Axes : 038 059 054 degrees QTc Int : 409 ms SINUS BRADYCARDIA OTHERWISE NORMAL ECG WHEN COMPARED WITH ECG OF 18-OCT-2006 08:05, NO SIGNIFICANT CHANGE WAS FOUND Confirmed by ISIDRO ACOSTA MD ([id number]) on 01/17/2017 12:52:34 PM Referred By: Fer FERRIS Confirmed By:ISIDRO ACOSTA MD
== END 2017-01-17 14:21 | disposition home or self-care (01) ==
LOC: JER 14:25 → JERBED 19:12 → J5S 21:31 → J4W 01-16 16:20
PROVIDERS: ADMIT Family Medicine; ATTEND Family Medicine
PROC: 3E0333Z Introduction of Anti-inflammatory into Peripheral Vein, Percutaneous Approach (ICD-10-PCS; principal; 2017-01-15)
PROC: 3E033GC Introduction of Other Therapeutic Substance into Peripheral Vein, Percutaneous Approach (ICD-10-PCS; 2017-01-15)
PROC: 3E0337Z Introduction of Electrolytic and Water Balance Substance into Peripheral Vein, Percutaneous Approach (ICD-10-PCS; 2017-01-15)
DX: R51 Headache (principal); I10 Essential (primary) hypertension; E78.2 Mixed hyperlipidemia; E66.9 Obesity, unspecified; E11.9 Type 2 diabetes mellitus without complications; Z68.41 Body mass index [BMI] 40.0-44.9, adult; Z79.84 Long term (current) use of oral hypoglycemic drugs; M13.862 Other specified arthritis, left knee; M13.861 Other specified arthritis, right knee; F41.9 Anxiety disorder, unspecified; Z90.89 Acquired absence of other organs; Z90.49 Acquired absence of other specified parts of digestive tract; Z91.89 Other specified personal risk factors, not elsewhere classified; Z72.9 Problem related to lifestyle, unspecified
CPT/HCPCS: 36415; 70450-TC; 70551-TC; 71020-TC; 80053; 80061; 83036; 83721; 84443; 85025; 85027; 85651; 86038; 86140; 86593; 86618; 93005; 93010; 93306-TC; 99282-25; G0378

== ENCOUNTER 2019-01-25 17:38 | Emergency (ER) | payer OTHER | END 2019-01-25 21:35 | disposition home or self-care (01) | LOC: JER 17:38 ==

== ENCOUNTER 2020-05-08 18:09 | Emergency (ER) | payer OTHER ==
[2020-05-08 18:17] VITALS: BP 165/91; PULSE 75; TEMP 97.9; BMI 31.1
--- NOTE | 2020-05-08 19:00 | PDOC ---
History of Present Illness - General Chief Complaint: Injury Stated Complaint: INJURY/R/SHOULDER/PAIN/UPPER R/ARM Time Seen by Provider: 05/08/20 18:27 History Source: Patient - History of Present Illness Occurred: reports: yesterday Severity: reports: moderate Upper Extremity Pain Location: right: arm, shoulder Past History - Medical History Allergies/Adverse Reactions: Allergies Allergy/AdvReac Type Severity Reaction Status Date / Time Iodinated Contrast Media Allergy Verified 05/08/20 18:12 IV CONTRAST Allergy Severe Difficulty Uncoded 05/08/20 18:12 Breathing Home Medications: Ambulatory Orders Atorvastatin Ca [Lipitor] 10 mg PO HS #30 tablet 01/17/17 Lisinopril [Prinivil] 2.5 mg PO DAILY #30 tablet 01/17/17 Metformin HCl [Glucophage] 500 mg PO BID 05/08/20 COPD: No Diabetes: Yes HTN: Yes Hypercholesterolemia: Yes - Surgical History Appendectomy: Yes Cholecystectomy: Yes - Reproductive History Is Patient Now?: No - Psycho-Social/Smoking History Smoking History: Never smoked Have you smoked in the past 12 months: No Number of Cigarettes Smoked Daily: 0 - Substance Abuse Hx (Audit-C & DAST Scrn) How often the patient has a drink containing alcohol: Never Score: In Men: 4 or > Positive; In Women: 3 or > Positive: 0 Screen Result (Pos requires Nsg. Audit-10AR): Negative In the last yr the pt used illegal drug/Rx for NonMed reason: No Score: Yes response is considered Positive: 0 Screen Result (Positive result requires Nsg. DAST-10): Negative Review of Systems - Review of Systems Musculoskeletal: Yes: Joint Pain. No: Joint Swelling Neurological: No: Numbness, Tingling, Weakness *Physical Exam - Vital Signs Last Vital Signs Temp Pulse Resp BP Pulse Ox 97.9 F 75 18 165/91 99 05/08/20 18:13 05/08/20 18:13 05/08/20 18:13 05/08/20 18:13 05/08/20 18:13 - Physical Exam General Appearance: Yes: Appropriately Dressed, Mild Distress HEENT: positive: Normal Voice Neck: positive: Supple Extremity: positive: Tender (diffusely to R GH joint and arm w/ ~6x4 area of ecchymosis to lateral mid arm, LROM 2/2 pain, strenght 3/5 to RUE vs 5/5 to LUE) Integumentary: positive: Dry, Warm Neurologic: positive: Fully Oriented, Alert, Normal Mood/Affect ED Treatment Course - RADIOLOGY Radiology Studies Ordered: Category Date Time Status HUMERUS-RIGHT [RAD] Stat Radiology 05/08/20 18:32 Taken SHOULDER-RIGHT [RAD] Stat Radiology 05/08/20 18:32 Taken Medical Decision Making - Medical Decision Making 05/08/20 18:57 59-year-old female history of diabetes, status post rotator cuff surgery to right shoulder remotely, here with severe right shoulder/arm pain after lifting heavy groceries yesterday. This a.m. noticed bruising to arm. No fall not on blood thinners. see exam RUE strain/contusion in the setting of heavy lifting XR neg for fx/dislocation -sling given -to continue OTC meds and f/u with pt's own orthopedics if sxs persist as d/w pt Discharge - Discharge Information Problems reviewed: Yes Clinical Impression/Diagnosis: Muscle strain, upper arm Qualifiers: Encounter type: initial encounter Laterality: right Qualified Code(s): S46.911A - Strain of unspecified muscle, fascia and tendon at shoulder and upper arm level, right arm, initial encounter Condition: Stable Disposition: HOME - Follow up/Referral - Patient Discharge Instructions Patient Printed Discharge Instructions: Muscle Strain Additional Instructions: Your x-ray shows no broken bones are dislocation. You most likely suffered a muscle contusion secondary to strain Take Tylenol for pain as needed and use sling for support If pain persist after 2 weeks, follow-up with your orthopedist - Post Discharge Activity
== END 2020-05-08 19:07 | disposition home or self-care (01) ==
LOC: JERFT 18:09
DX: S46.911A Strain of unspecified muscle, fascia and tendon at shoulder and upper arm level, right arm, initial encounter (principal)
CPT/HCPCS: 73030-TC-RT-FY; 73060-TC-RT-FY; 99284-25